=== PATIENT | male | born 1950 | race Caucasian/White ===

== ENCOUNTER 2025-02-02 08:12 | Outpatient (AMB) | payer OTHER, SELFPAY ==
--- NOTE | 2025-02-02 08:49 | A.OFFVIS_ITS ---
Intake Visit Reasons: 6 month Allergies No Known Allergies Allergy (Verified 02/02/25 08:49) Medication List - Last Reconciled 02/02/25 by Shayla Hughes CNP cyclobenzaprine 10 mg PO BEDTIME epinephrine 0.3 mL IM gabapentin 600 mg PO TID 90 days hydrochlorothiazide 25 mg PO DAILY lisinopril 10 mg PO DAILY meloxicam 15 mg PO DAILY pramipexole 0.25 mg PO QPM 90 days rosuvastatin 20 mg PO DAILY tirzepatide (Mounjaro) 5 mg subcut QWEEK HPI Comments Details: He was doing okay. He was taking Mounjaro and has lost weight. Gets some dizziness when changing positions quickly, no falls. Stopped pramipexole in 12/2024 as he read dizziness was side effect of medication. No change in dizziness after stopping medication. RLS symptoms may have increased some since stopping medication and had few nights where symptoms disrupted sleep. Back pain has been okay. Symptoms of pain and burning in feet are controlled. controlled with gabapentin. Staying active, going for walks and using recumbent bike. He was thinking about getting another dog as his dog passed earlier this year. Low back pain relatively well-controlled, on occasion pain radiates down either leg. Worse with certain movements. LBP previously increased after stopping Percocet and cyclobenzaprine, spasms are gone. Previously had allergic reaction to a cream, was in [facility] with fever, infection, and delirious for 4 days. Numbness in right hand. 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 Has h/o chronic low back pain from lumbar disc disease. [facility] Medical History (Updated 02/02/25 @ 08:53 by Shayla Hughes CNP) Strabismus Hypertension Hypercholesteremia Surgical History (Updated 02/02/25 @ 08:51 by Shayla Hughes CNP) S/P lumbar discectomy S/p bilateral carpal tunnel release Review of Systems Const Denies chills, Denies daytime sleepiness, Denies difficulty sleeping, Denies fatigue, Denies fever(s), Denies frequent falls, Denies headache(s), Denies increased appetite, Denies poor appetite, Denies snoring, Denies weakness, Denies weight gain and Denies weight loss Eyes Denies loss of vision ENT Denies vertigo, Denies dizziness, Denies headache(s) and Denies neck pain Card Denies chest pain at rest, Denies chest pain with activity, Denies syncope, Denies leg edema, Denies palpitations, Denies dyspnea and Denies dyspnea on exertion Resp Denies cough, Denies dyspnea, Denies dyspnea on exertion and Denies snoring GI Denies abdominal pain, Denies constipation, Denies heartburn, Denies diarrhea and Denies nausea Denies urinary frequency, Denies urinary incontinence and Denies urinary urgency Musc Denies abnormal gait, Reports back pain, Denies myalgias, Denies arthralgias, Denies neck pain, Reports numbness and Reports tingling Neuro Denies abnormal gait, Denies vertigo, Denies dizziness, Denies syncope, Denies frequent falls, Denies headache(s), Denies lack of coordination, Denies loss of vision, Denies memory loss, Reports numbness, Denies Other visual disturbances, Reports restless legs, Denies seizure-like activity, Reports tingling, Denies paresthesias, Denies tremor(s) and Denies weakness Psych Denies anxiety, Denies depression, Denies auditory hallucinations, Denies memory loss and Denies visual hallucinations Endo Denies fatigue and Denies palpitations Physical Exam Const Other: General Appearance:? normal, in no acute distress. Heart:? S1, S2 normal, no murmurs. Lungs:? clear anteriorly and posteriorly. Musculoskeletal:? normal. Extremities:? no edema. Psych:? alert, oriented, cognitive function intact, cooperative with exam. Neuro Other: Abnormal Neurological Findings:?Diminished reflexes at ankles 1-2+, KJ 3+ Mental Status: alert and oriented X 3. Normal attention, orientation, memory, and affect. Cranial Nerves: Pupils are equal, round, and reactive to light. External ocular muscles are intact. Visual mccray are full, no ptosis. Face is symmetrical, no facial weakness or droop. Facial sensations are normal. Tongue protrudes in midline. Palate elevates symmetrically. Shoulder shrugging is normal Motor Examination: As above. Sensory Exam: Normal light touch, temperature, pinprick, vibration, and joint- position sensations. Rhomberg sign is absent. Coordination: No ataxia. No titubation. Gait Exam: Within normal limits. Cerebellar Signs: [id number] is okay. Extrapyramidal System: No tremor, rigidity with normal facial expressions. No bradykinesia. No bradyphrenia. Normal arm swing and posture. No propulsion or retropulsion. Speech: Normal. Assessment & Plan Assessment & Plan (1) Restless leg syndrome: Code(s): G25.81 - Restless legs syndrome Category: Medical Plan: Dizziness not likely related to pramipexole - advised to stay hydrated, eat regularly throughout the day, change positions slowly. RLS symptoms were slightly worse without medication, but were not always significantly bothersome. May take pramipexole 0.25mg 1/2 - 1 tablet daily in the evening as needed for RLS symptoms. (2) Lumbar disc disease: Code(s): M51.9 - Unspecified thoracic, thoracolumbar and lumbosacral intervertebral disc disorder Category: Medical Plan: Continue gabapentin 600mg 1 tablet three times a day. Continue meloxicam 15mg 1 tablet with food daily. Continue cyclobenzaprine 10mg 1 tablet at bedtime as needed for muscle spasm/pain. Coding Level of Care Code Est Pt Level 4 (54463) Diagnoses Restless leg syndrome G25.81 Lumbar disc disease M51.9
== END 2025-02-02 09:11 | disposition home or self-care (01) ==
LOC: HO.HSM 08:13
PROVIDERS: PCP Internal Medicine; Referring Provider Internal Medicine; Visit Provider Registered Nurse
DX: G25.81 Restless legs syndrome (principal); M51.9 Unspecified thoracic, thoracolumbar and lumbosacral intervertebral disc disorder
CPT/HCPCS: 99214